=== PATIENT | male | born 2000 | race Caucasian/White ===

== ENCOUNTER 2022-06-30 00:59 | Inpatient (IN) | payer BC ==
[~2022-06-30] VITALS: Ht 185.4 cm; Wt 104.3 kg
--- NOTE | 2022-06-30 01:15 | NUR ---
PATIENT [id number] FROM [facility] C/O MULTIPLE SEIZURE DURING THE DAY. PATIENT IS A/O X 2, RR EVEN AND UNLABORED NO SOB NOTED, PATIENT IS AFEBRILE. PATIENT CONNECTED TO CARDIAC AND POX MONITOR.
[2022-06-30] MEDS ORDERED: LORAZEPAM INJ 2 MG/ML VIAL ONE (01:21)
[2022-06-30] MEDS ORDERED: IV NS 0.9% 1,000 ML BAG IV ONE (01:30)
[2022-06-30] MEDS ORDERED: LORAZEPAM INJ 2 MG/ML VIAL IVP ONE (01:30)
--- NOTE | 2022-06-30 01:38 | NUR ---
COVID TEST SENT TO LAB
--- NOTE | 2022-06-30 01:38 | NUR ---
20G IV STARTED AT . BLOOD DRAWN AND SENT TO LAB
--- NOTE | 2022-06-30 01:38 | NUR ---
URINE SENT TO LAB
--- NOTE | 2022-06-30 01:40 | NUR ---
XRAY AT BEDSIDE
--- NOTE | 2022-06-30 01:43 | NUR ---
PT BEING TRANSPORTED TO CT
[2022-06-30 01:46] LABS: BASOPHILS % (AUTO) 0.4 % (0.0-2.0); EOSINOPHILS % (AUTO) 1.3 % (0.0-6.0); HEMATOCRIT 38 % (39-51); HEMOGLOBIN 12.5 g/dL (13.5-17.5); LYMPHOCYTES # (AUTO) 3.1 K/uL (0.8-4.8); LYMPHOCYTES % (AUTO) 25.5 % (20.0-44.0); MEAN CORPUSCULAR HGB CONC 33 g/dl (31.0-36.0); MEAN CORPUSCULAR VOLUME 96 fL (80-96); MONOCYTES # (AUTO) 0.7 K/uL (0.1-1.30); MONOCYTES % (AUTO) 5.4 % (2.0-12.0); NEUTROPHILS # (AUTO) 8.3 K/uL (1.8-8.9); NEUTROPHILS % (AUTO) 67.4 % (43.0-81.0); PLATELET COUNT (AUTO) 240 K/uL (150-450); RED BLOOD CELL COUNT(AUTO) 3.93 MIL/uL (4.5-6.0); WHITE BLOOD COUNT (AUTO) 12.4 K/uL (4.3-11.0)
[2022-06-30 02:03] LABS: CALCIUM, SERUM 8.8 mg/dL (8.5-10.1); CARBON DIOXIDE 20 mmol/L (21-32); CHLORIDE 100 mmol/L (98-107); CREATININE 1.5 mg/dL (0.6-1.3); GLUCOSE 113 mg/dL (74-106); POTASSIUM 3.6 mmol/L (3.5-5.1); SODIUM SERUM 139 mmol/L (136-145); UREA NITROGEN, BLOOD 12 mg/dL (7-18)
[2022-06-30 02:09] LABS: ALANINE AMINOTRANSFERASE 21 U/L (12-78); ALCOHOL, BLOOD < 3 mg/dL (0-0); ALKALINE PHOSPHATASE 81 U/L (46-116); ASPARTATE AMINOTRANSFERASE 23 U/L (15-37); BILIRUBIN,DIRECT 0.1 mg/dL (0.0-0.2); BILIRUBIN,TOTAL 0.3 mg/dL (0.2-1.0); TOTAL PROTEIN, SERUM 7.1 g/dL (6.4-8.2)
--- NOTE | 2022-06-30 03:07 | NUR ---
TITRATED PT FROM NRB 15LPM TO N/C 2LPM; SATTING AT 98%. RESP EVEN AND NONLABORED. PT STILL LETHARGIC. VSS
[2022-06-30] MEDS ORDERED: ONDANSETRON HCL/PF 4 MG/2 ML VIAL IVP PRN (04:30)
[2022-06-30] MEDS ORDERED: IV NS 0.9% 1,000 ML IV PRN (04:30)
[2022-06-30] MEDS ORDERED: phenytoin SODIUM IV 1,000 MG in IV NS 0.9% 100 ML IV ONE (04:30)
[2022-06-30] MEDS ORDERED: ACETAMINOPHEN 325 MG TABLET PO PRN (04:30)
[2022-06-30] MEDS ORDERED: LORAZEPAM INJ 2 MG/ML VIAL IV PRN (04:30)
[2022-06-30] MEDS ORDERED: MAGNESIUM HYDROXIDE 30 ML UDC PO PRN (04:30)
[2022-06-30] MEDS ORDERED: Z GUARD REMEDY 4 OZ OINT TP PRN (04:30)
[2022-06-30] MEDS ORDERED: ZOLPIDEM TARTRATE 5 MG TABLET PO PRN (04:30)
[2022-06-30] MEDS ORDERED: MAG HYDROX/AL HYDROX/SIMETH 30 ML UDC PO PRN (04:30)
--- NOTE | 2022-06-30 06:43 | NUR ---
REPORT GIVEN TO [facility] RN FOR ANNAMARIA;. STATED TO TRANSFER PT AFTER CHANGE OF SHIFT.
[2022-06-30] MEDS ORDERED: phenytoin SODIUM IV 250 MG/5 ML VIAL IV ONE (07:03)
--- NOTE | 2022-06-30 07:27 | NUR ---
PT TRANSFERRED TO [facility] VIA ACLS SEIZURE PROTOCOL. VSS. ALL BELONGINGS WITH PT. PT'S CELLPHONE AT BEDSIDE. ENDORSED DILANTIN 1G TO DEBRA FALCON TO CONTINUE ADMINISTRATION IN [facility].
--- NOTE | 2022-06-30 07:58 | NUR ---
RN OPENING NOTE RECEIVED PATIENT FROM THE ED. PATIENT IS LETHARGIC RESPONSE TO NAME AND WAS UNABLE TO ANSWER QUESTIONS REGARDING PAST MEDICAL HISTORY. SHAYLA 2 L NC WITH NO SIGNS OR RESPIRATORY DISTRESS. IV ACCESS ON LEFT FOREARM 20G RUNNING DILANTIN. SEIZURE PROTOCOL IN PLACE, HOSPITAL SAFETY MEASURES IN PLACE PER POLICY.
[2022-06-30 08:00] VITALS: BP 136/48
[2022-06-30] MEDS ORDERED: PANTOPRAZOLE 40 MG VIAL IV SCH (09:00)
[2022-06-30 12:00] VITALS: BP 136/90
[2022-06-30] MEDS: PHENYTOIN SODIUM IV 100 MG/2ML VIAL IV SCH ×2 (14:39→20:35)
[2022-06-30 16:00] VITALS: BP 122/88
[2022-06-30 16:36] LABS: CREATININE, URINE 75.9 MG/DL (30.0-125.0)
[2022-06-30 17:31] LABS: BILIRUBIN,URINE NEGATIVE (NEGATIVE); COLOR,URINE YELLOW (YELLOW); LEUKOCYTE ESTERASE ,URINE NEGATIVE (NEGATIVE); NITRITE, URINE NEGATIVE (NEGATIVE); PH,URINE 5.5 (5.0-8.0); PROTEIN,URINE TRACE mg/dl (NEGATIVE); UGLUCOSE NEGATIVE (NEGATIVE); UROBILINOGEN,URINE 0.2 EU/dL (0.2)
[2022-06-30 17:45] LABS: BACTERIA,URINE None seen /HPF (None Seen); RBC,URINE NONE SEEN /HPF (0-2); WBC,URINE 0-2 /HPF (0-3)
[2022-06-30 17:46] LABS: SQUAMOUS EPITHELIAL CELL,UR Rare /HPF (None Seen)
--- NOTE | 2022-06-30 18:43 | NUR ---
RN CLOSING NOTE PATIENT A/O 2 IN BED ON 2 L NC WITH NO CURRENT SINGS OF RESP DISTRESS. IV ACCES ON LEFT FOREARM 20G SL. SEIZURE PRECAUTIONS IN PLACE. HOSPITAL SAFETY PRECAUTIONS IN PLACE PER PROTOCOL. WILL ENDORSE TO NIGHT NURSE FOR ANNAMARIA.
--- NOTE | 2022-06-30 19:00 | NUR ---
RN NOTE PATIENT IN BED, FAMILY AT BEDSIDE, AO X 4, IN NO ACUTE DISTRESS, PER DEBRA RN PATIENT MORE ALERT NOW COMPARED TO EARLIER, NO SEIZURE EPISODE DURING DAY SHIFT. SATURATION AT 98% ON ROOM AIR, SR ON THE MONITOR HR IS 71. IV LINE AT LFA 20G PATENT AND FLUSHING WELL, NO S/S OF INFECTION OR INFILTRATION, SALINE LOCKED. SAFETY AND SEIZURE PRECUATIONS IN PLACE, BED IS LOCKED AND AT LOWEST POSITION, HOB ELEVATED, SIDERAILS PADDED. CALL LIGHT WITHIN REACH OF PATIENT. WILL CONT TO MONITOR AND REASSESS.
--- NOTE | 2022-06-30 20:54 | NUR ---
RN NOTE PATIENT WISHED TO LEAVE AMA, EXPLAINED AND EDUCATED REGARDING RISKS OF LEAVING THE HOSPITAL AND STOPPING FURTHER TREATMENT. PATIENT ADVISED TO FOLLOW UP WITH PCP. PATIENT VERBALIZED UNDERSTANDING AND SIGNED AMA FORM. DR PENG WAS NOTIFIED AND ACKNOWLEDGED. PATIENT AMBULATORY WITH STEADY GAIT. ALL BELONGINGS SENT WITH PATIENT.
--- NOTE | 2022-06-30 23:36 | NUR ---
RISK INCIDENT REPORT SUBMITTED: Unique Id: [id number]
== END 2022-06-30 23:05 | disposition left against medical advice (07) | DRG 100 ==
LOC: ER 01:10 → TRANSITION 05:32 → TELE-TD 06:42
PROVIDERS: ADMIT Nurse Practitioner Acute Care; ATTEND Nurse Practitioner Acute Care
DX: G40.901 Epilepsy, unspecified, not intractable, with status epilepticus (principal); N17.0 Acute kidney failure with tubular necrosis; F13.239 Sedative, hypnotic or anxiolytic dependence with withdrawal, unspecified; Z20.822 Contact with and (suspected) exposure to COVID-19
CPT/HCPCS: 36415; 70450-TC; 71045-TC; 80048-TC; 80076-TC; 81001; 82570-TC; 82962-TC; 84300-TC; 85025-TC; 85730-TC; 87081-TC; C9113; C9803; G0378; G0480; J1165; J2060; J2405; J7030